=== PATIENT | male | born 1985 | race Caucasian/White ===

== ENCOUNTER 2020-01-01 21:15 | Emergency (ER) | payer OTHER ==
[~2020-01-01] VITALS: Ht 172.7 cm; Wt 53.5 kg
[2020-01-01] MEDS ORDERED: AUGMENTIN 500-1 EACH PO (21:54)
[2020-01-01 21:57] VITALS: BP 144/72
== END 2020-01-01 21:58 ==
LOC: M.ERS 21:15
DX: L02.31 Cutaneous abscess of buttock (principal)